=== PATIENT | male | born 1980 | race Caucasian/White ===

== ENCOUNTER 2017-11-30 08:05 | Emergency (ER) | payer OTHER ==
[~2017-11-30] VITALS: Ht 172.7 cm; Wt 93.0 kg
[~2017-11-30 08:05] MED LIST: ACTICIN 5% CREA60 GM TOP; ALPRAZOLAM; BACTRIM DS TAB1 EACH PO; BENADRYL25 MG PO; DARVOCET-N 1001 EACH PO; DOXYCYCLINE 10100 MG PO; ELAVIL; LEXAPRO20 MG; MEDROLDOSEPACK PO; MOMETASONE FURO45 GM TP; NOHOMEMEDICATIONS; NORCO 5-325 TA1 EACH PO; PENICILLIN VK500 M1 PO; PENICILLIN VK500 MG PO; PEPCID40 MG PO; PERCOCET 7.5-31 EACH PO; PREDNISONE 10 M10 M1 PO; STERAPRED DS10 MG PO; TRAMADOL 50 MG50 MG PO; TRIAMCINOLONE A15 G2 TP; TRIAMCINOLONE TOP; ULTRAM 50MG TAB50 MG PO; VICODIN 5-5001 EACH PO; XANAX XR1 MG PO; ZOFRAN4 MG PO; ZPAK PO
[2017-11-30] MEDS ORDERED: IBUPROFEN 800800 M1 PO (09:08)
[2017-11-30] MEDS ORDERED: HYDROCODON-ACE1 EAC7 PO (09:08)
[2017-11-30 09:20] VITALS: BP 130/87
== END 2017-11-30 09:35 | disposition home or self-care (01) ==
LOC: M.ERS 08:05
DX: S62.304A Unspecified fracture of fourth metacarpal bone, right hand, initial encounter for closed fracture (principal); S62.306A Unspecified fracture of fifth metacarpal bone, right hand, initial encounter for closed fracture; Z88.8 Allergy status to other drugs, medicaments and biological substances; V19.9XXA Pedal cyclist (driver) (passenger) injured in unspecified traffic accident, initial encounter; Y93.89 Activity, other specified; Y92.89 Other specified places as the place of occurrence of the external cause; Y99.8 Other external cause status

== ENCOUNTER → 2021-02-26 | Emergency (ER) | payer OTHER ==
[~2021-02-26] VITALS: Ht 172.7 cm; Wt 105.8 kg
[~2021-02-26] MED LIST changes: +HYDROCODON-ACE1 EAC7 PO; +IBUPROFEN 800800 M1 PO
[2021-02-26 01:35] VITALS: BP 160/90
--- NOTE | 2021-02-26 14:59 | EKG ---
[place] [address] ELECTROCARDIOGRAM REPORT Name: KAYLYN FLORES Room: [facility]#: [id number] Admission: 02/26/21 Attend Phys: Discharge: Date of : 80 Date of Service: 02/26/21111 Report #: [id number] THIS REPORT FOR: //name// [facility] ED Test Date: 2021-02-26 Test Time: 01:12:11 Pat Name: KAYLYN FLORES Department: Room: Gender: [employer] Driver: ARIELA : 1980 Requested By: Cleo Kerns Order Number: [id number] MD: William Godoy Measurements Intervals [place] Rate: 100 P: 24 [place]: 153 QRS: 35 QRSD: 99 T: 26 QT: 334 QTc: 431 Interpretive Statements Sinus tachycardia No previous ECG available for comparison Electronically Signed On 02-26-2021 14:59:07 CDT by William Godoy [email or web address] <ELECTRONICALLY SIGNED> By: William Godoy MD, [facility] 02/26/21 1459 1 0112 William Godoy MD, FACC /EPI
== END ==
LOC: M.ERS 00:58
DX: T65.91XA Toxic effect of unspecified substance, accidental (unintentional), initial encounter (principal); Z53.21 Procedure and treatment not carried out due to patient leaving prior to being seen by health care provider